=== PATIENT | female | born 1945 | race Caucasian/White ===

== ENCOUNTER 2022-02-18 21:47 | Emergency (ER) | payer MEDICARE ==
[~2022-02-18] VITALS: Ht 154.9 cm; Wt 74.8 kg
--- NOTE | 2022-02-18 22:05 | NUR ---
[id number] FROM HOME FOR SLURRED SPEECH APPROX FOR 15 MIN @2100. PLACED ON BED, AAOX4, BREATHING EVEN AND UNLABORED.
--- NOTE | 2022-02-18 22:12 | NUR ---
AT BED SIDE
--- NOTE | 2022-02-18 22:21 | NUR ---
SWAB FOR COVID19 SENT TO LAB
[2022-02-18] MEDS ORDERED: IV NS 0.9% 500 ML BAG IV ONE (22:30)
--- NOTE | 2022-02-18 22:38 | NUR ---
URINE SAMPLE SENT TO LAB
--- NOTE | 2022-02-18 22:41 | NUR ---
[employer] AT BED SIDE
--- NOTE | 2022-02-18 22:55 | NUR ---
PATIENT TAKEN TO CT VIA EMMANUEL
[2022-02-18 23:13] LABS: BASOPHILS % (AUTO) 0.4 % (0.0-2.0); EOSINOPHILS % (AUTO) 1.6 % (0.0-6.0); HEMATOCRIT 44 % (33-45); HEMOGLOBIN 14.6 g/dL (11.5-14.8); LYMPHOCYTES # (AUTO) 2.4 K/uL (0.8-4.8); LYMPHOCYTES % (AUTO) 28.4 % (20.0-44.0); MEAN CORPUSCULAR HGB CONC 33 g/dl (31.0-36.0); MEAN CORPUSCULAR VOLUME 92 fL (82-100); MONOCYTES # (AUTO) 0.8 K/uL (0.1-1.30); MONOCYTES % (AUTO) 9.8 % (2.0-12.0); NEUTROPHILS % (AUTO) 59.8 % (43.0-81.0); PLATELET COUNT (AUTO) 252 K/uL (150-450); RED BLOOD CELL COUNT(AUTO) 4.75 MIL/uL (4.0-5.2); WHITE BLOOD COUNT (AUTO) 8.4 K/uL (4.3-11.0)
[2022-02-18 23:17] LABS: BILIRUBIN,URINE NEGATIVE (NEGATIVE); COLOR,URINE YELLOW (YELLOW); LEUKOCYTE ESTERASE ,URINE MODERATE (NEGATIVE); NITRITE, URINE NEGATIVE (NEGATIVE); PH,URINE 5.5 (5.0-8.0); PROTEIN,URINE NEGATIVE (NEGATIVE); UGLUCOSE >=1000 mg/dL (NEGATIVE); UROBILINOGEN,URINE 0.2 EU/dL (0.2)
[2022-02-18 23:27] LABS: CALCIUM, SERUM 9.4 mg/dL (8.5-10.1); CARBON DIOXIDE 28 mmol/L (21-32); CHLORIDE 102 mmol/L (98-107); CREATININE 0.9 mg/dL (0.6-1.3); GLUCOSE 112 mg/dL (74-106); POTASSIUM 3.3 mmol/L (3.5-5.1); SODIUM SERUM 138 mmol/L (136-145); UREA NITROGEN, BLOOD 28 mg/dL (7-18)
[2022-02-18 23:33] LABS: ALANINE AMINOTRANSFERASE 30 U/L (12-78); ALBUMIN 3.9 g/dL (3.4-5.0); ALKALINE PHOSPHATASE 96 U/L (46-116); ASPARTATE AMINOTRANSFERASE 12 U/L (15-37); BILIRUBIN,DIRECT 0.2 mg/dL (0.0-0.2); BILIRUBIN,TOTAL 0.7 mg/dL (0.2-1.0); TOTAL PROTEIN, SERUM 7.7 g/dL (6.4-8.2)
[2022-02-18 23:57] LABS: ALCOHOL, BLOOD < 3 mg/dL (0-0)
[2022-02-18 23:59] LABS: ACETAMINOPHEN 0 ug/ml (10-30)
[2022-02-18] MEDS ORDERED: NITR100C6 PO (23:59)
[2022-02-19] MEDS ORDERED: NITROFURANTOIN/MONOHYDRATE MACROCRYSTALS 100 MG CAPSULE PO ONE
[2022-02-19] MEDS ORDERED: NITROFURANTOIN/MONOHYDRATE MACROCRYSTALS 100 MG CAPSULE ONE (00:02)
--- NOTE | 2022-02-19 00:08 | NUR ---
Patient does not wish to proceed with medical care recommended by Dr. Jacobs. Patient given information related to possible complications, up to and including , which could occur as a result of leaving the hospital at this time. Patient verbalizes understanding of risks involved due to leaving against medical advice. Patient has signed AMA form. IV removed. Catheter intact and site benign. Pressure and 4x4 applied to site. No bleeding noted.Picked up by daughter.
[2022-02-19 00:27] VITALS: BP 139/82
[2022-02-19 02:37] LABS: RBC,URINE 0-2 /HPF (0-2)
[2022-02-19 02:38] LABS: BACTERIA,URINE Few /HPF (None Seen); SQUAMOUS EPITHELIAL CELL,UR Few /HPF (None Seen); WBC,URINE 21-50 /HPF (0-3)
== END 2022-02-19 00:27 | disposition left against medical advice (07) ==
LOC: ER 21:51
DX: R41.82 Altered mental status, unspecified (principal); N39.0 Urinary tract infection, site not specified; Z53.29 Procedure and treatment not carried out because of patient's decision for other reasons; Z20.822 Contact with and (suspected) exposure to COVID-19; E11.9 Type 2 diabetes mellitus without complications
CPT/HCPCS: 99285; 93005; 71045; 70450; 85025; 80048; 87086; 80076; 81001; 36415; 84484; 85730; 82962; 87426; 80143; 80320; 80307; J7040; C9803; G0480